=== PATIENT | male | born 1960 | race Caucasian/White ===

== ENCOUNTER 2016-05-20 23:20 | Emergency (ER) | payer BC, OTHER ==
[~2016-05-20] VITALS: Ht 172.7 cm; Wt 79.4 kg
[~2016-05-20 23:20] MED LIST: BUPR1FIL3 SL; FINA5TAB11 PO; LISI40TA4 PO; OXCA300T4 PO; SILD50TA PO; TAMS0.4C34 PO; TRAZ-144 PO; VENL150C2 PO
[2016-05-20] MEDS ORDERED: METH4TAB17 PO (23:47)
[2016-05-20] MEDS ORDERED: LEVO500T90 PO (23:47)
[2016-05-21] MEDS ORDERED: DIAZEPAM 2 MG TABLET PO ONE
[2016-05-21] MEDS ORDERED: DIAZEPAM 2 MG TABLET ONE (00:09)
--- NOTE | 2016-05-21 00:37 | NUR ---
Patient discharged to home in stable conditon. Written and verbal after care instructions given. Patient verbalizes understanding of instructions.
== END 2016-05-21 00:42 | disposition home or self-care (01) ==
LOC: ER 23:30
DX: R53.83 Other fatigue (principal); R05 Cough; I10 Essential (primary) hypertension
CPT/HCPCS: 71010; 99283; A4663

== ENCOUNTER 2016-08-07 20:33 | Emergency (ER) | payer BC, OTHER ==
[~2016-08-07] VITALS: Ht 172.7 cm; Wt 79.4 kg
[~2016-08-07 20:33] MED LIST changes: +LEVO500T90 PO; +METH4TAB17 PO; -OXCA300T4 PO
--- NOTE | 2016-08-07 21:12 | NUR ---
When presented with discharge instructions, patient walked to [facility] and spit out medication.
--- NOTE | 2016-08-07 21:13 | NUR ---
Patient discharged to home in stable conditon. Written and verbal after care instructions given. Patient verbalizes understanding of instructions.
[2016-08-07] MEDS ORDERED: LET TOPICAL SOLUTION 8 ML UDC TP ONE (21:15)
[2016-08-07] MEDS ORDERED: LET TOPICAL SOLUTION 8 ML UDC ONE (21:18)
== END 2016-08-07 21:15 | disposition home or self-care (01) ==
LOC: ER 20:33
DX: K08.89 Other specified disorders of teeth and supporting structures (principal); F17.200 Nicotine dependence, unspecified, uncomplicated; F19.10 Other psychoactive substance abuse, uncomplicated; I10 Essential (primary) hypertension; F32.9 Major depressive disorder, single episode, unspecified; F11.20 Opioid dependence, uncomplicated
CPT/HCPCS: A4663